=== PATIENT | male | born 1955 | race Caucasian/White ===

== ENCOUNTER 2017-10-12 07:54 | Outpatient (CLI) | payer OTHER ==
[~2017-10-12 07:54] MED LIST: AMLO1TAB PO
[2017-10-12 09:13] LABS: BASOPHILS % (AUTO) 0.6 % (0-1); EOSINOPHILS # (AUTO) 0.2 X10'3 (0-0.9); EOSINOPHILS % (AUTO) 4.6 % (0-6); HEMATOCRIT 45.8 % (42.0-52.0); HEMOGLOBIN 15.2 g/dl (14.0-17.9); LYMPHOCYTES # (AUTO) 1.7 X10'3 (1.1-4.8); LYMPHOCYTES % (AUTO) 31.8 % (21-51); MEAN CORPUSCULAR HEMOGLOBIN 28.2 PG (27.0-31.0); MEAN CORPUSCULAR HGB CONC 33.2 % (33.0-36.5); MEAN PLATELET VOLUME 7.3 FL (7.4-10.4); MONOCYTES # (AUTO) 0.5 X10'3 (0-0.9); MONOCYTES % (AUTO) 10.4 % (2-12); NEUTROPHILS # (AUTO) 2.7 X10'3 (1.8-7.7); NEUTROPHILS % (AUTO) 52.6 % (42-75); PLATELET COUNT 229 X10'3 (140-440); RED BLOOD COUNT 5.39 X10'6 (4.70-6.10); RED CELL DISTRIBUTION WIDTH 14.6 % (11.5-14.5); WHITE BLOOD COUNT 5.2 X10'3 (4.5-11.0)
[2017-10-12 09:30] LABS: ALANINE AMINOTRANSFERASE 39 U/L (12-78); ALBUMIN 3.5 G/DL (3.4-5.0); ALKALINE PHOSPHATASE 80 IU/L (46-116); ANION GAP 8 (8-16); ASPARTATE AMINO TRANSFERASE 23 U/L (10-37); BILIRUBIN,TOTAL 0.4 MG/DL (0.1-1.0); BLOOD UREA NITROGEN 18 MG/DL (7-18); CALCIUM 8.2 MG/DL (8.5-10.1); CHLORIDE 106 MMOL/L (99-107); CHOL/HDL RATIO 3.7 (0.00-4.99); CHOLESTEROL 151 MG/DL (0-200); CREATININE 1.38 MG/DL (0.60-1.10); GLUCOSE 131 MG/DL (70-104); HDL CHOLESTEROL 41 MG/DL (35-60); LDL CHOLESTEROL 96 MG/DL (50-100); POTASSIUM 3.9 MMOL/L (3.5-5.1); SODIUM 141 MMOL/L (135-145); TOTAL CARBON DIOXIDE 26.6 MMOL/L (24-32); TOTAL PROTEIN 6.9 G/DL (6.4-8.2); TRIGLYCERIDES 84 MG/DL (20-135); eGFR 52 ML/MIN
== END 2017-10-12 23:59 | disposition home or self-care (01) ==
LOC: LAB 07:54
DX: Z00.01 Encounter for general adult medical examination with abnormal findings (principal); Z12.5 Encounter for screening for malignant neoplasm of prostate; I10 Essential (primary) hypertension; Z87.891 Personal history of nicotine dependence
CPT/HCPCS: 36415; 80053; 80061; 84153; 85025

== ENCOUNTER 2017-11-24 14:11 | Outpatient (CLI) | payer OTHER | END 2017-11-24 23:59 | disposition home or self-care (01) | LOC: LAB 14:11 | DX: R73.01 Impaired fasting glucose (principal); I10 Essential (primary) hypertension; Z87.891 Personal history of nicotine dependence | CPT/HCPCS: 36415; 83036 ==

== ENCOUNTER 2018-10-27 07:48 | Outpatient (CLI) | payer OTHER ==
[2018-10-27 08:43] LABS: BASOPHILS % (AUTO) 0.6 % (0-1); EOSINOPHILS # (AUTO) 0.2 X10'3 (0-0.9); EOSINOPHILS % (AUTO) 2.7 % (0-6); HEMATOCRIT 47.6 % (42.0-52.0); HEMOGLOBIN 15.8 g/dl (14.0-17.9); LYMPHOCYTES # (AUTO) 1.1 X10'3 (1.1-4.8); MEAN CORPUSCULAR HEMOGLOBIN 28.1 PG (27.0-31.0); MEAN CORPUSCULAR HGB CONC 33.2 g/dL (33.0-36.5); MEAN CORPUSCULAR VOLUME 84.6 FL (78-98); MEAN PLATELET VOLUME 7.2 FL (7.4-10.4); MONOCYTES # (AUTO) 0.6 X10'3 (0-0.9); MONOCYTES % (AUTO) 10.2 % (2-12); NEUTROPHILS # (AUTO) 4.1 X10'3 (1.8-7.7); NEUTROPHILS % (AUTO) 67.5 % (42-75); PLATELET COUNT 235 X10'3 (140-440); RED BLOOD COUNT 5.63 X10'6 (4.70-6.10); RED CELL DISTRIBUTION WIDTH 14.7 % (11.5-14.5)
[2018-10-27 08:52] LABS: ALANINE AMINOTRANSFERASE 29 U/L (12-78); ALBUMIN 3.7 G/DL (3.4-5.0); ALKALINE PHOSPHATASE 88 IU/L (46-116); ANION GAP 9 (8-16); ASPARTATE AMINO TRANSFERASE 20 U/L (10-37); BILIRUBIN,TOTAL 0.7 MG/DL (0.1-1.0); BLOOD UREA NITROGEN 19 MG/DL (7-18); CALCIUM 8.4 MG/DL (8.5-10.1); CHLORIDE 109 MMOL/L (99-107); CHOLESTEROL 157 MG/DL (0-200); CREATININE 1.19 MG/DL (0.60-1.10); GLUCOSE 98 MG/DL (70-104); HDL CHOLESTEROL 39 MG/DL (35-60); LDL CHOLESTEROL 100 MG/DL (50-100); POTASSIUM 4.2 MMOL/L (3.5-5.1); SODIUM 143 MMOL/L (135-145); TOTAL CARBON DIOXIDE 24.9 MMOL/L (24-32); TOTAL PROTEIN 7.4 G/DL (6.4-8.2); TRIGLYCERIDES 105 MG/DL (20-135); eGFR 62 ML/MIN
== END 2018-10-27 23:59 | disposition home or self-care (01) ==
LOC: LAB 07:48
DX: Z00.00 Encounter for general adult medical examination without abnormal findings (principal); Z12.5 Encounter for screening for malignant neoplasm of prostate; I10 Essential (primary) hypertension; Z87.891 Personal history of nicotine dependence
CPT/HCPCS: 36415; 80053; 80061; 84153; 85025

== ENCOUNTER 2018-12-29 04:05 | Inpatient (IN) | payer OTHER ==
[~2018-12-29] VITALS: Ht 180.3 cm; Wt 96.4 kg
[2018-12-29] MEDS ORDERED: normal saline 1000ML IV soln IVB ONE (04:25)
[2018-12-29 04:38] LABS: BASOPHILS # (AUTO) 0.1 X10'3 (0-0.2); EOSINOPHILS # (AUTO) 0.2 X10'3 (0-0.9); EOSINOPHILS % (AUTO) 1.9 % (0-6); HEMATOCRIT 50.6 % (42.0-52.0); HEMOGLOBIN 17.3 g/dl (14.0-17.9); LYMPHOCYTES % (AUTO) 19.8 % (21-51); MEAN CORPUSCULAR HEMOGLOBIN 29.1 PG (27.0-31.0); MEAN CORPUSCULAR HGB CONC 34.2 g/dL (33.0-36.5); MEAN CORPUSCULAR VOLUME 85.1 FL (78-98); MONOCYTES # (AUTO) 0.9 X10'3 (0-0.9); MONOCYTES % (AUTO) 8.8 % (2-12); NEUTROPHILS # (AUTO) 6.9 X10'3 (1.8-7.7); NEUTROPHILS % (AUTO) 68.5 % (42-75); PLATELET COUNT 296 X10'3 (140-440); RED BLOOD COUNT 5.94 X10'6 (4.70-6.10); RED CELL DISTRIBUTION WIDTH 14.1 % (11.5-14.5)
[2018-12-29 04:48] LABS: PARTIAL THROMBOPLASTIN TIME 24 SECONDS (22-32)
[2018-12-29 05:16] LABS: ALBUMIN 4.1 G/DL (3.4-5.0); ANION GAP 12 (8-16); ASPARTATE AMINO TRANSFERASE 27 U/L (10-37); BILIRUBIN,TOTAL 0.6 MG/DL (0.1-1.0); BLOOD UREA NITROGEN 20 MG/DL (7-18); BUN/CREATININE RATIO 10.3 (5.4-32.0); CALCIUM 9.3 MG/DL (8.5-10.1); CHLORIDE 102 MMOL/L (99-107); CREATININE 1.95 MG/DL (0.60-1.10); GLUCOSE 152 MG/DL (70-104); SODIUM 141 MMOL/L (135-145); TOTAL CARBON DIOXIDE 27.1 MMOL/L (24-32); TOTAL PROTEIN 8.4 G/DL (6.4-8.2); eGFR 35 ML/MIN
[2018-12-29 05:17] LABS: ALANINE AMINOTRANSFERASE 32 U/L (12-78); ALKALINE PHOSPHATASE 96 IU/L (46-116)
[2018-12-29 05:20] LABS: ETHANOL < 0.010 GM/DL (0.0-0.010); LIPASE 164 U/L (73-393); TROPONIN I < 0.04 NG/ML (0.0-0.05)
--- NOTE | 2018-12-29 05:39 | NUR ---
Pt updated on need for UA for further evaluation. Pt states he is unable to urinate at this time. IVFs infusing per MD order. Will continue to monitor and assess.
[2018-12-29] MEDS ORDERED: NAPR-996 PO (06:33)
[2018-12-29] MEDS ORDERED: ROSU10TA28 PO (06:33)
[2018-12-29] MEDS ORDERED: OLME1TAB40 PO (06:33)
[2018-12-29] MEDS ORDERED: OMEP-50 PO (06:33)
[2018-12-29] MEDS ORDERED: SILD50TA PO (06:34)
[2018-12-29] MEDS ORDERED: potassium CL 10mEq/100ml bag 100 ML IV PRN ×2 (07:10)
[2018-12-29] MEDS ORDERED: magnesium Cl slow-release 64mg tablet PO PRN (07:10)
[2018-12-29] MEDS ORDERED: magnesium 4gm in 100ml NS 100 ML IV PRN (07:10)
[2018-12-29] MEDS ORDERED: magnesium 2GM in 50ml NS 50 ML IV PRN (07:10)
[2018-12-29] MEDS ORDERED: ondansetron/PF 4mg/2ml inj IV PRN (07:10)
[2018-12-29] MEDS ORDERED: potassium Cl 20 mEq SR tablet PO PRN ×2 (07:10)
--- NOTE | 2018-12-29 07:20 | NUR ---
pt. refused to use a bedside commode or urinal. pt. denied any dizziness or lightheadness while sitting up and standing up. pt. walked to the bathroom on his own.
[2018-12-29] MEDS ORDERED: AMLO5TAB PO (07:39)
[2018-12-29 07:45] LABS: CLARITY,URINE CLEAR (Clear); COLOR,URINE YELLOW (Yellow); GLUCOSE, URINE NEGATIVE (Neg); KETONES,URINE NEGATIVE (Neg); LEUKOCYTE ESTERASE ,URINE NEGATIVE (Neg); NITRITES, URINE NEGATIVE (Neg); OCCULT BLOOD,URINE NEGATIVE (Neg); PROTEIN,URINE NEGATIVE (Neg); UA COLLECTION TYPE URINAL; UROBILINOGEN,URINE 0.2 E.U/dL (0.2-1.0)
[2018-12-29 07:47] LABS: BASOPHILS % (AUTO) 0.2 % (0-1); EOSINOPHILS # (AUTO) 0.1 X10'3 (0-0.9); EOSINOPHILS % (AUTO) 0.6 % (0-6); HEMATOCRIT 43.2 % (42.0-52.0); HEMOGLOBIN 14.5 g/dl (14.0-17.9); LYMPHOCYTES # (AUTO) 0.8 X10'3 (1.1-4.8); LYMPHOCYTES % (AUTO) 7.6 % (21-51); MEAN CORPUSCULAR HGB CONC 33.6 g/dL (33.0-36.5); MEAN CORPUSCULAR VOLUME 86.1 FL (78-98); MONOCYTES # (AUTO) 0.8 X10'3 (0-0.9); MONOCYTES % (AUTO) 7.2 % (2-12); NEUTROPHILS # (AUTO) 9.5 X10'3 (1.8-7.7); NEUTROPHILS % (AUTO) 84.4 % (42-75); PLATELET COUNT 223 X10'3 (140-440); RED BLOOD COUNT 5.02 X10'6 (4.70-6.10); RED CELL DISTRIBUTION WIDTH 13.8 % (11.5-14.5); WHITE BLOOD COUNT 11.2 X10'3 (4.5-11.0)
[2018-12-29 07:51] LABS: URINE AMPHETAMINE SCREEN NEGATIVE (Neg); URINE BARBITUATE SCREEN NEGATIVE (Neg); URINE BENZODIAZEPINES SCREEN NEGATIVE (Neg); URINE CANNABINOID SCREEN NEGATIVE (Neg); URINE COCAINE SCREEN NEGATIVE (Neg); URINE METHADONE SCREEN NEGATIVE (Neg); URINE OPIATE SCREEN NEGATIVE (Neg); URINE PHENCYCLIDINE SCREEN NEGATIVE (Neg)
[2018-12-29 08:00] VITALS: BP_SYST 121; BP_SYST 124; BP_SYST 125; BP_DIAS 75; BP_DIAS 77; BP_DIAS 78
[2018-12-29] MEDS: K and/or MAG REPLACEMENT MC SCH (08:00)
--- NOTE | 2018-12-29 08:00 | NUR ---
received report from ED nurse, patient arrived on unit, vital signs obtained, VSS, patient reports no nausea and only low level abdominal pain, fluids running at 150ml/hr as ordered, no acute distress, will continue to monitor.
[2018-12-29] MEDS: normal saline 1000ml 1,000 ML IV SCH ×3 (09:38→20:29)
[2018-12-29 11:00] VITALS: BP 99/55
[2018-12-29 13:13] LABS: OCCULT BLOOD STOOL NEGATIVE (Neg)
[2018-12-29 15:00] VITALS: BP 127/74
[2018-12-29] MEDS: losartan 50mg tablet PO SCH (15:50)
[2018-12-29 18:00] VITALS: BP 112/67
--- NOTE | 2018-12-29 18:00 | NUR ---
Patient in room PCU 3021. I have received report from Cornelia DEVINE and had the opportunity to ask questions and assume patient care.
--- NOTE | 2018-12-29 18:26 | NUR ---
Problems reprioritized. Patient report given, questions answered & plan of care reviewed with SYBIL Deal.
[2018-12-29 20:00] VITALS: BP 111/68
[2018-12-29 22:00] VITALS: BP 114/67
[2018-12-30 02:00] VITALS: BP 111/68
[2018-12-30] MEDS: normal saline 1000ml 1,000 ML IV SCH (03:09)
[2018-12-30 05:38] LABS: ANION GAP 4 (8-16); BLOOD UREA NITROGEN 13 MG/DL (7-18); BUN/CREATININE RATIO 11.3 (5.4-32.0); CALCIUM 8.1 MG/DL (8.5-10.1); CHLORIDE 112 MMOL/L (99-107); CREATININE 1.15 MG/DL (0.60-1.10); GLUCOSE 89 MG/DL (70-104); MAGNESIUM 1.9 MG/DL (1.5-2.4); POTASSIUM 4.1 MMOL/L (3.5-5.1); SODIUM 143 MMOL/L (135-145); TOTAL CARBON DIOXIDE 27.5 MMOL/L (24-32); eGFR 64 ML/MIN
[2018-12-30 05:39] LABS: BASOPHILS % (AUTO) 0.7 % (0-1); EOSINOPHILS # (AUTO) 0.2 X10'3 (0-0.9); EOSINOPHILS % (AUTO) 4.5 % (0-6); HEMATOCRIT 41.9 % (42.0-52.0); HEMOGLOBIN 14.3 g/dl (14.0-17.9); LYMPHOCYTES % (AUTO) 35.1 % (21-51); MEAN CORPUSCULAR HEMOGLOBIN 29.6 PG (27.0-31.0); MEAN CORPUSCULAR HGB CONC 34.1 g/dL (33.0-36.5); MEAN CORPUSCULAR VOLUME 86.8 FL (78-98); MEAN PLATELET VOLUME 7.2 FL (7.4-10.4); MONOCYTES # (AUTO) 0.6 X10'3 (0-0.9); NEUTROPHILS # (AUTO) 2.8 X10'3 (1.8-7.7); NEUTROPHILS % (AUTO) 49.7 % (42-75); PLATELET COUNT 197 X10'3 (140-440); RED BLOOD COUNT 4.83 X10'6 (4.70-6.10); RED CELL DISTRIBUTION WIDTH 13.9 % (11.5-14.5); WHITE BLOOD COUNT 5.6 X10'3 (4.5-11.0)
--- NOTE | 2018-12-30 06:45 | NUR ---
Problems reprioritized. Patient report given, questions answered & plan of care reviewed with Nataly DEVINE.
[2018-12-30] MEDS: K and/or MAG REPLACEMENT MC SCH (06:50)
--- NOTE | 2018-12-30 07:13 | NUR ---
END NOC NOTE Patient slept well all night, able to ambulate to the bathroom and back to bed. Patient refused orthostatic vitals. Will continue to monitor.
[2018-12-30 08:00] VITALS: BP_SYST 113; BP_SYST 121; BP_SYST 128; BP_DIAS 84; BP_DIAS 85; BP_DIAS 87
[2018-12-30] MEDS ORDERED: atorvastatin 20mg tablet PO SCH (08:00)
[2018-12-30] MEDS ORDERED: amLODIPine 5mg tablet PO SCH (08:00)
[2018-12-30] MEDS: losartan 50mg tablet PO SCH (08:55)
[2018-12-30] MEDS ORDERED: LOSA50TA64 PO (10:52)
--- NOTE | 2018-12-30 11:00 | NUR ---
Discharge Home: All belonging accounted for, will drive Pt. home. Stable for discharge with no GI symptoms. Written instructions provided. Follow up appointment will be made with PCP Dr. Garcia. Discharge Medication Losartin 30mg is called to [facility].
== END 2018-12-30 11:15 | disposition home or self-care (01) | DRG 388 ==
LOC: ER 04:06 → EDBEDREQSVC 07:18 → ED HOLD 07:27 → PCU 3S 07:55
PROVIDERS: ADMIT Internal Medicine; ATTEND Internal Medicine
DX: K56.699 Other intestinal obstruction unspecified as to partial versus complete obstruction (principal); N17.0 Acute kidney failure with tubular necrosis; E78.5 Hyperlipidemia, unspecified; K21.9 Gastro-esophageal reflux disease without esophagitis; E86.9 Volume depletion, unspecified; W18.39XA Other fall on same level, initial encounter; R55 Syncope and collapse; I10 Essential (primary) hypertension; Z79.899 Other long term (current) drug therapy; Z87.442 Personal history of urinary calculi; Y93.89 Activity, other specified; Y92.090 Kitchen in other non-institutional residence as the place of occurrence of the external cause; Y99.8 Other external cause status; Z88.5 Allergy status to narcotic agent
CPT/HCPCS: 36415; 70450; 71045; 74176; 80048; 80053; 80305; 80320; 81003; 82140; 82272; 82948; 83605; 83690; 83735; 84484; 85025; 85610; 85730; 87040; 87081; 93005; 99285; G0378; J7030

== ENCOUNTER 2020-07-18 11:30 | Outpatient (CLI) | payer BC ==
[~2020-07-18 11:30] MED LIST changes: -AMLO1TAB PO; +AMLO5TAB PO; +LOSA50TA64 PO; +NAPR-996 PO; +OMEP-50 PO; +ROSU10TA28 PO; +SILD50TA PO
[2020-07-18 12:00] LABS: BASOPHILS # (AUTO) 0.1 X10'3 (0-0.2); BASOPHILS % (AUTO) 1.2 % (0-1); EOSINOPHILS # (AUTO) 0.1 X10'3 (0-0.9); EOSINOPHILS % (AUTO) 1.8 % (0-6); HEMATOCRIT 47.7 % (42.0-52.0); LYMPHOCYTES # (AUTO) 1.4 X10'3 (1.1-4.8); LYMPHOCYTES % (AUTO) 19.6 % (21-51); MEAN CORPUSCULAR HEMOGLOBIN 28.7 PG (27.0-31.0); MEAN CORPUSCULAR HGB CONC 33.5 g/dL (33.0-36.5); MEAN CORPUSCULAR VOLUME 85.5 FL (78-98); MEAN PLATELET VOLUME 7.1 FL (7.4-10.4); MONOCYTES # (AUTO) 0.8 X10'3 (0-0.9); MONOCYTES % (AUTO) 10.8 % (2-12); NEUTROPHILS # (AUTO) 4.8 X10'3 (1.8-7.7); NEUTROPHILS % (AUTO) 66.6 % (42-75); PLATELET COUNT 216 X10'3 (140-440); RED BLOOD COUNT 5.58 X10'6 (4.70-6.10); RED CELL DISTRIBUTION WIDTH 13.8 % (11.5-14.5); WHITE BLOOD COUNT 7.2 X10'3 (4.5-11.0)
[2020-07-18 12:05] LABS: CLARITY,URINE CLEAR (Clear); COLOR,URINE YELLOW (Yellow); GLUCOSE, URINE NEGATIVE (Neg); KETONES,URINE NEGATIVE (Neg); LEUKOCYTE ESTERASE ,URINE NEGATIVE (Neg); NITRITES, URINE NEGATIVE (Neg); OCCULT BLOOD,URINE NEGATIVE (Neg); PH,URINE 5.5 (4.8-8.0); PROTEIN,URINE NEGATIVE (Neg); UROBILINOGEN,URINE 0.2 E.U/dL (0.2-1.0)
[2020-07-18 12:10] LABS: UA COLLECTION TYPE NON-SPECIFIED
[2020-07-18 12:34] LABS: ALANINE AMINOTRANSFERASE 37 U/L (12-78); ALBUMIN 3.9 G/DL (3.4-5.0); ALBUMIN/GLOBULIN RATIO 1.1 (1.1-1.5); ALKALINE PHOSPHATASE 99 IU/L (46-116); ANION GAP 6 (8-16); ASPARTATE AMINO TRANSFERASE 21 U/L (10-37); BILIRUBIN,TOTAL 0.5 MG/DL (0.1-1.0); BLOOD UREA NITROGEN 20 MG/DL (7-18); BUN/CREATININE RATIO 16.8 (5.4-32.0); CALCIUM 8.5 MG/DL (8.5-10.1); CHLORIDE 108 MMOL/L (99-107); CHOL/HDL RATIO 3.6 (0.00-4.99); CHOLESTEROL 153 MG/DL (0-200); CREATININE 1.19 MG/DL (0.60-1.10); GLUCOSE 96 MG/DL (70-104); HDL CHOLESTEROL 42 MG/DL (35-60); LDL CHOLESTEROL 90 MG/DL (50-100); MAGNESIUM 2.2 MG/DL (1.5-2.4); POTASSIUM 4.4 MMOL/L (3.5-5.1); SODIUM 144 MMOL/L (135-145); TOTAL CARBON DIOXIDE 29.6 MMOL/L (24-32); TOTAL PROTEIN 7.5 G/DL (6.4-8.2); TRIGLYCERIDES 104 MG/DL (20-135); eGFR 62 ML/MIN
[2020-07-18 12:38] LABS: HEMOGLOBIN A1C 5.6 % (4.5-6.2)
== END 2020-07-18 23:59 | disposition home or self-care (01) ==
LOC: LAB 11:30
DX: Z00.01 Encounter for general adult medical examination with abnormal findings (principal); N40.0 Benign prostatic hyperplasia without lower urinary tract symptoms; N30.01 Acute cystitis with hematuria; E11.9 Type 2 diabetes mellitus without complications; E78.00 Pure hypercholesterolemia, unspecified; D51.9 Vitamin B12 deficiency anemia, unspecified; E55.9 Vitamin D deficiency, unspecified; D50.9 Iron deficiency anemia, unspecified; I10 Essential (primary) hypertension; E03.9 Hypothyroidism, unspecified
CPT/HCPCS: 36415; 80053; 80061; 81003; 82306; 82607; 83036; 83735; 84153; 84154; 84439; 84443; 85025

== ENCOUNTER 2021-08-03 18:26 | Emergency (ER) | payer OTHER ==
[~2021-08-03] VITALS: Ht 180.3 cm; Wt 98.2 kg
[~2021-08-03 18:26] MED LIST changes: -OMEP-50 PO; +OMEP20CA16 PO
[2021-08-03 20:59] VITALS: BP 135/88
== END 2021-08-03 21:00 | disposition home or self-care (01) ==
LOC: ER 18:27
DX: S46.811A Strain of other muscles, fascia and tendons at shoulder and upper arm level, right arm, initial encounter (principal); Z98.890 Other specified postprocedural states; Z72.89 Other problems related to lifestyle; Z88.5 Allergy status to narcotic agent; Z79.899 Other long term (current) drug therapy; W22.8XXA Striking against or struck by other objects, initial encounter; Y93.89 Activity, other specified; Y92.89 Other specified places as the place of occurrence of the external cause; Y99.8 Other external cause status
CPT/HCPCS: 73030; 99283

== ENCOUNTER 2024-04-02 14:12 | Emergency (ER) | payer BC, OTHER ==
[~2024-04-02] VITALS: Ht 180.3 cm; Wt 100.0 kg
[~2024-04-02 14:12] MED LIST changes: +NAPR-1168 PO; -NAPR-996 PO; -ROSU10TA28 PO; +ROSU10TA72 PO
[2024-04-02 14:48] LABS: BASOPHILS # (AUTO) 0.1 X10'3 (0-0.2); BASOPHILS % (AUTO) 0.5 % (0-1); EOSINOPHILS # (AUTO) 0.1 X10'3 (0-0.9); EOSINOPHILS % (AUTO) 0.7 % (0-6); HEMATOCRIT 46.4 % (42.0-52.0); HEMOGLOBIN 15.6 g/dl (14.0-17.9); LYMPHOCYTES # (AUTO) 1.5 X10'3 (1.1-4.8); LYMPHOCYTES % (AUTO) 12.9 % (21-51); MEAN CORPUSCULAR HEMOGLOBIN 28.4 PG (27.0-31.0); MEAN CORPUSCULAR HGB CONC 33.6 g/dL (33.0-36.5); MEAN CORPUSCULAR VOLUME 84.4 FL (78-98); MEAN PLATELET VOLUME 6.8 FL (7.4-10.4); MONOCYTES # (AUTO) 1.4 X10'3 (0-0.9); NEUTROPHILS # (AUTO) 8.5 X10'3 (1.8-7.7); NEUTROPHILS % (AUTO) 73.9 % (42-75); PLATELET COUNT 286 X10'3 (140-440); RED CELL DISTRIBUTION WIDTH 13.6 % (11.5-14.5); WHITE BLOOD COUNT 11.5 X10'3 (4.5-11.0)
[2024-04-02 15:06] LABS: ALANINE AMINOTRANSFERASE 34 U/L (12-78); ALBUMIN 3.6 G/DL (3.4-5.0); ALBUMIN/GLOBULIN RATIO 0.8 (1.1-1.5); ALKALINE PHOSPHATASE 87 IU/L (46-116); ANION GAP 9 (8-16); ASPARTATE AMINO TRANSFERASE 25 U/L (10-37); BILIRUBIN,TOTAL 0.6 MG/DL (0.1-1.0); BLOOD UREA NITROGEN 14 MG/DL (7-18); BUN/CREATININE RATIO 10.1 (10.0-20.0); CALCIUM 8.6 MG/DL (8.5-10.1); CHLORIDE 104 MMOL/L (99-107); CREATININE 1.38 MG/DL (0.60-1.10); GLUCOSE 108 MG/DL (70-104); POTASSIUM 3.1 MMOL/L (3.5-5.1); SODIUM 136 MMOL/L (135-145); TOTAL CARBON DIOXIDE 22.8 MMOL/L (24-32); TOTAL PROTEIN 7.9 G/DL (6.4-8.2); eCRCL 55 ML/MIN; eGFR 51 ML/MIN
[2024-04-02 15:22] LABS: PRO BRAIN NATRIURETIC PEPTIDE 51 PG/ML (0-125)
[2024-04-02] MEDS ORDERED: iohexol 300mg/ml 100ml inj. ONE (16:50)
[2024-04-02 17:00] VITALS: BP 133/81; PULSE 83; O2SAT 95
[2024-04-02] MEDS: normal saline 1000ML IV soln IVB ONE (17:00)
[2024-04-02] MEDS: pantoprazole 40 MG vial IV ONE (17:00)
[2024-04-02] MEDS: potassium Cl 20 mEq SR tablet PO ONE (17:01)
[2024-04-02] MEDS ORDERED: AMOX-117 PO (18:57)
[2024-04-02 19:05] VITALS: RESP 16; TEMP 97.8
== END 2024-04-02 19:18 | disposition home or self-care (01) ==
LOC: ER 14:12
DX: K57.32 Diverticulitis of large intestine without perforation or abscess without bleeding (principal); I10 Essential (primary) hypertension; K21.9 Gastro-esophageal reflux disease without esophagitis; Z88.5 Allergy status to narcotic agent; Z79.899 Other long term (current) drug therapy; Z87.442 Personal history of urinary calculi; Z72.89 Other problems related to lifestyle
CPT/HCPCS: 36415; 71045; 74177; 80053; 83880; 84484; 85025; 93005; 96365; 99285; J2470; J7030; Q9967